=== PATIENT | female | born 1985 | race Caucasian/White ===

== ENCOUNTER → 2017-10-10 | Outpatient (CLI) | payer BC ==
[~2017-10-10] MED LIST: CEFD300C3 PO; FLUO40CA PO; MMT17NA NS; NAPR-243 PO; PRD20T PO; PRM25T PO; SULF1TAB35 PO; TRAM50TA2 PO
--- NOTE | 2017-10-10 13:23 | Diagnostic Imaging Report ---
PROCEDURE: US Thyroid. TECHNIQUE: Multiple real-time grayscale images were obtained of the thyroid in various projections. INDICATION: Thyromegaly and neck pain. FINDINGS: The right lobe of the thyroid measures 3.9 x 1.0 x 1.4 cm and the left lobe measures 4.3 x 1.3 x 1.2 cm. Both lobes demonstrate homogeneous echotexture. No discrete mass is identified. IMPRESSION: Unremarkable thyroid ultrasound. Dictated by: Dictated on workstation # [id number]
== END ==
LOC: RAD 11:10
PROVIDERS: ATTEND Nurse Practitioner Family
DX: E01.0 Iodine-deficiency related diffuse (endemic) goiter (principal)
CPT/HCPCS: 76536

== ENCOUNTER → 2022-03-07 | Outpatient (CLI) | payer BC, OTHER ==
--- NOTE | 2022-03-07 13:41 | Diagnostic Imaging Report ---
INDICATION: Palpable lump right breast. COMPARISON: No prior mammograms are available for comparison. TECHNIQUE: Unilateral right 2D and 3D diagnostic mammography was performed with CAD. A BB marker was placed at the area of palpable abnormality in the upper right breast. FINDINGS: There are scattered fibroglandular densities in the right breast. There is a lobulated mass in the upper right breast at mid depth corresponding to the palpable abnormality. No other masses are seen. No malignant-appearing microcalcifications are identified. IMPRESSION: A lobulated mass in the upper right breast at mid depth corresponds to the palpable abnormality. Further evaluation with ultrasound is recommended and will be performed today. ACR BI-RADS Category 0: Incomplete. (Needs additional imaging evaluation). Result letter will be mailed to the patient. Note: At least 10% of breast cancer is not imaged by mammography. Dictated by: Dictated on workstation # [id number]
--- NOTE | 2022-03-07 14:41 | Diagnostic Imaging Report ---
INDICATION: Palpable lump in the right breast. COMPARISON: Correlation is made with the diagnostic mammogram from earlier this same day. FINDINGS: Sonographic interrogation of the area of lump in the upper right breast was performed. There is a lobulated solid mass at the 12:30 location 3 cm from the nipple measuring 1.2 x 0.7 x 1.3 cm. This is fairly well marginated. There is internal vascularity present. No posterior acoustic shadowing is seen. IMPRESSION: A macrolobulated solid nodule at the 12:30 location of the right breast corresponds with the mammographic and palpable abnormality. Features are most suggestive of a fibroadenoma; however, tissue sampling is recommended. This would be amenable to an ultrasound-guided core biopsy. ACR BI-RADS Category 4: Suspicious abnormality. Result letter will be mailed to the patient. Note: At least 10% of breast cancer is not imaged by mammography. Dictated by: Dictated on workstation # [id number]
== END ==
LOC: RAD 12:56
PROVIDERS: ATTEND Family Medicine
DX: N63.11 Unspecified lump in the right breast, upper outer quadrant (principal)
CPT/HCPCS: 76642; 77065; G0279

== ENCOUNTER → 2022-03-14 | Outpatient (CLI) | payer OTHER ==
[~2022-03-14] VITALS: Ht 162.6 cm; Wt 95.5 kg
[~2022-03-14] MED LIST changes: +LIDOCAINE 1% INJ 10 ML VIAL INJ ONE
--- NOTE | 2022-03-14 13:42 | Diagnostic Imaging Report ---
INDICATION: Right breast mass. Patient presents for ultrasound guided biopsy. DETAILS OF THE PROCEDURE: The patient was brought to the ultrasound suite and placed on the table in the supine position. Ultrasound imaging of the right breast was performed to evaluate for an appropriate entry site. The right breast was then prepped and draped in the usual sterile fashion. A small amount of 1% lidocaine was utilized for local anesthesia. A total of three core biopsies was made of the solid mass at the 12:30 location of the right breast 3 cm from the nipple utilizing a 14-gauge Achieve needle. A marker clip was then deployed. The needles were removed and hemostasis was obtained. The patient tolerated the procedure well and was sent for a post procedure mammogram in satisfactory condition. IMPRESSION: Successful ultrasound guided core biopsy of the right breast mass at the 12 o'clock location. Pathology results are currently pending. Dictated by: Dictated on workstation # [id number]
--- NOTE | 2022-03-14 16:33 | Diagnostic Imaging Report ---
INDICATION: Right breast nodule, status post ultrasound guided biopsy. Unilateral right 2-D CC and ML mammography was performed after patient underwent ultrasound-guided core biopsy. There is a marker clip located within the lobulated lesion in the upper right breast at mid depth. IMPRESSION: Marker clip placement, status post ultrasound-guided right breast biopsy. Dictated by: Dictated on workstation # [id number]
== END ==
LOC: RAD 12:21
PROVIDERS: ATTEND Family Medicine
DX: N63.15 Unspecified lump in the right breast, overlapping quadrants (principal)
CPT/HCPCS: 19083; 77065; G0279